=== PATIENT | female | born 1950 | race Caucasian/White ===

== ENCOUNTER → 2016-09-25 | Outpatient (CLI) | payer MEDICARE ==
[~2016-09-25] MED LIST: ATOR80TA75 PO; BUDE10.2 INH; CALC-126 PO; CETI10CA PO; DABI150C PO; DULO60CA7 PO; EZET10TA3 PO; MULT-717 PO; PROP20TA PO; REGADENOSON 0.4 MG/5 ML SYRINGE ONE; SOTA80TA18 PO
== END | disposition home or self-care (01) ==
LOC: CFH 08:25
PROVIDERS: ATTEND Internal Medicine Cardiovascular Disease
DX: R06.02 Shortness of breath (principal); R09.89 Other specified symptoms and signs involving the circulatory and respiratory systems
CPT/HCPCS: 78452; 93017; A9502; J2785

== ENCOUNTER 2018-02-14 08:06 | Day surgery (SDC) | payer MEDICARE ==
[~2018-02-14] VITALS: Ht 165.1 cm; Wt 100.0 kg
[~2018-02-14 08:06] MED LIST changes: +ATOR-2 PO; -ATOR80TA75 PO; +EZET10TA18 PO; -EZET10TA3 PO; -REGADENOSON 0.4 MG/5 ML SYRINGE ONE
[2018-02-14 09:03] VITALS: BP 152/98
[2018-02-14] MEDS ORDERED: BUPR150T73 PO (09:14)
[2018-02-14] MEDS ORDERED: ARIP2TAB2 PO (09:14)
[2018-02-14] MEDS ORDERED: DILT120C9 PO (09:14)
[2018-02-14 09:19] LABS: BASOPHILS # (AUTO) 0.04 x10^3/uL (0-0.1); BASOPHILS % (AUTO) 1 % (0-1); EOSINOPHILS # (AUTO) 0.17 x10^3/uL (0-0.4); EOSINOPHILS % (AUTO) 2 % (1-7); LYMPHOCYTES # (AUTO) 1.88 x10^3/uL (1-3.4); LYMPHOCYTES % (AUTO) 24 % (22-44); MD NO; MEAN CORPUSCULAR HEMOGLOBIN 30.3 pg (27.0-34.8); MEAN CORPUSCULAR HGB CONC 32.9 g/dL (32.4-35.8); MEAN CORPUSCULAR VOLUME 92.2 fL (80-100); MEAN PLATELET VOLUME 7.6 fL (7.4-10.4); MONOCYTES # (AUTO) 0.69 x10^3/uL (0.2-0.8); MONOCYTES % (AUTO) 9 % (2-9); NEUTROPHILS # (AUTO) 5.17 x10^3/uL (1.8-6.8); NEUTROPHILS % (AUTO) 65 % (42-75); PLATELET COUNT 298 x10^3/uL (130-400); RED CELL DISTRIBUTION WIDTH 15.3 % (9.6-15.2)
[2018-02-14 09:31] LABS: ANION GAP 8 mmol/L (5-15); CALCIUM 8.3 mg/dL (8.5-10.1); CHLORIDE 106 mmol/L (98-107); CREATININE 0.84 mg/dL (0.55-1.02)
[2018-02-14] MEDS ORDERED: PROPOFOL 10 MG/ML, 20ML ONE (10:55)
== END 2018-02-14 12:15 | disposition home or self-care (01) ==
LOC: CACL 08:06
PROVIDERS: ATTEND Internal Medicine Cardiovascular Disease
DX: I48.0 Paroxysmal atrial fibrillation (principal); I10 Essential (primary) hypertension; Z79.899 Other long term (current) drug therapy
CPT/HCPCS: 36415; 71046; 80048; 85025; 92960; J2704

== ENCOUNTER 2018-03-28 05:51 | Observation (INO) | payer MEDICARE ==
[2018-03-27 13:19] VITALS: BP 152/103
[2018-03-27 13:19] LABS: BASOPHILS # (AUTO) 0.05 x10^3/uL (0-0.1); BASOPHILS % (AUTO) 1 % (0-1); EOSINOPHILS # (AUTO) 0.17 x10^3/uL (0-0.4); EOSINOPHILS % (AUTO) 2 % (1-7); LYMPHOCYTES # (AUTO) 2.14 x10^3/uL (1-3.4); LYMPHOCYTES % (AUTO) 31 % (22-44); MD NO; MEAN CORPUSCULAR HEMOGLOBIN 29.7 pg (27.0-34.8); MEAN CORPUSCULAR HGB CONC 32.7 g/dL (32.4-35.8); MEAN CORPUSCULAR VOLUME 90.7 fL (80-100); MEAN PLATELET VOLUME 7.8 fL (7.4-10.4); MONOCYTES # (AUTO) 0.57 x10^3/uL (0.2-0.8); MONOCYTES % (AUTO) 8 % (2-9); NEUTROPHILS # (AUTO) 4.02 x10^3/uL (1.8-6.8); NEUTROPHILS % (AUTO) 58 % (42-75); PLATELET COUNT 272 x10^3/uL (130-400); RED BLOOD COUNT 4.97 x10^6/uL (3.82-5.3); RED CELL DISTRIBUTION WIDTH 14.8 % (9.6-15.2)
[2018-03-27 13:23] LABS: ALANINE AMINOTRANSFERASE 25 U/L (12-78); ALBUMIN 3.1 g/dL (3.4-5.0); ANION GAP 7 mmol/L (5-15); CALCIUM 8.2 mg/dL (8.5-10.1); CHLORIDE 106 mmol/L (98-107); CREATININE 0.74 mg/dL (0.55-1.02)
[2018-03-27 13:25] LABS: ALKALINE PHOSPHATASE 181 U/L (45-117); BILIRUBIN,TOTAL 0.7 mg/dL (0.2-1.0); TOTAL PROTEIN 7.3 g/dL (6.4-8.2)
[~2018-03-28] VITALS: Ht 162.6 cm; Wt 91.2 kg
[~2018-03-28 05:51] MED LIST changes: +ARIP20TA5 PO; +ARIP2TAB2 PO; +BUPR150T73 PO; +DILT120C9 PO; +SOTA80TA PO
[2018-03-28] MEDS ORDERED: SODIUM CHLORIDE 0.9% 1,000 ML IV SCH ×2 (06:16→06:30)
[2018-03-28] MEDS ORDERED: Metoprolol PO (06:32)
[2018-03-28] MEDS ORDERED: PROPOFOL 50 ML ONE (07:29)
[2018-03-28] MEDS ORDERED: MIDAZOLAM 1 MG/ML, 2ML ONE (07:29)
[2018-03-28] MEDS ORDERED: FENTANYL PF 250 MCG/5ML ONE (07:29)
[2018-03-28] MEDS ORDERED: ROCURONIUM 10 MG/ML,10ML ONE (08:06)
[2018-03-28] MEDS ORDERED: DEXAMETHASONE 4 MG/ML, 1ML ONE (08:06)
[2018-03-28] MEDS ORDERED: ONDANSETRON 2MG/ML, 2ML ONE (08:06)
[2018-03-28] MEDS ORDERED: SUCCINYLCHOLINE 20 MG/ML, 10ML ONE (08:06)
[2018-03-28] MEDS ORDERED: PROTAMINE SULFATE 10 MG/ML, 5ML ONE (12:05)
[2018-03-28] MEDS ORDERED: ZOLPIDEM 5MG TABLET PO PRN (12:30)
[2018-03-28] MEDS ORDERED: TEMPLATE NON-FORMULARY MED. (Budesonide/Formoterol Fumarate (Symbicort 160-4.5 Mcg Inhaler INH PRN (12:30)
[2018-03-28] MEDS ORDERED: MIDAZOLAM 1 MG/ML, 2ML IV PRN (13:00)
[2018-03-28] MEDS ORDERED: PROMETHAZINE 25 MG/ML, 1ML IV PRN (13:00)
[2018-03-28] MEDS ORDERED: PROMETHAZINE 12.5 MG SUPP PR PRN (13:00)
[2018-03-28] MEDS ORDERED: EPHEDRINE 50 MG/ML, 1ML IM PRN (13:00)
[2018-03-28] MEDS ORDERED: ONDANSETRON ODT 8 MG PO PRN (13:00)
[2018-03-28] MEDS ORDERED: FENTANYL PF 100 MCG/2ML IV PRN (13:00)
[2018-03-28] MEDS ORDERED: ONDANSETRON 2MG/ML, 2ML IV PRN (13:00)
[2018-03-28] MEDS ORDERED: ACETAMINOPHEN 325 MG TABLET PO PRN (13:00)
[2018-03-28] MEDS ORDERED: OXYcodone 5 MG/5 ML ORAL.SOL UDC PO PRN (13:00)
[2018-03-28] MEDS ORDERED: PROMETHAZINE 25 MG SUPP PR PRN (13:00)
[2018-03-28] MEDS ORDERED: DIPHENHYDRAMINE 50 MG/ML, 1ML IVPush PRN (13:00)
[2018-03-28] MEDS ORDERED: OXYcodone 5 MG/5 ML ORAL.SOL UDC ONE (13:34)
[2018-03-28] MEDS ORDERED: HYDROmorphone 1 MG/ML, 1ML ONE (13:44)
[2018-03-28] MEDS: HYDROmorphone 2 MG/ML, 1ML IVPush PRN ×2 (13:45→13:51)
[2018-03-28] MEDS: ACETAMINOPHEN 325 MG TABLET PO PRN (14:40)
[2018-03-28 14:50] VITALS: BP 121/63
[2018-03-28] MEDS ORDERED: ALBUTEROL SULFATE 2.5 MG/3 ML NPPB SCH (15:00)
[2018-03-28] MEDS ORDERED: DABIGATRAN 150 MG CAPSULE ONE (15:18)
[2018-03-28] MEDS: DABIGATRAN 150 MG CAPSULE PO SCH (15:20)
[2018-03-28] MEDS: ALBUTEROL SULFATE 2.5 MG/3 ML NPPB SCH ×2 (16:33→20:43)
[2018-03-28] MEDS ORDERED: SOTALOL 80MG TABLET ONE (17:05)
[2018-03-28] MEDS: SOTALOL 80MG TABLET PO SCH (17:07)
[2018-03-28 18:50] VITALS: BP 100/67
[2018-03-28] MEDS ORDERED: BUDESONIDE 0.5 MG/2 ML INHA NPPB SCH (21:00)
[2018-03-28] MEDS ORDERED: ATORVASTATIN 80 MG TABLET PO SCH (21:00)
[2018-03-28] MEDS ORDERED: EZETIMIBE 10 MG TABLET PO SCH (21:00)
[2018-03-29 00:35] VITALS: BP 97/65
[2018-03-29] MEDS: ACETAMINOPHEN 325 MG TABLET PO PRN ×2 (01:53→12:52)
[2018-03-29] MEDS: ALBUTEROL SULFATE 2.5 MG/3 ML NPPB SCH (02:24)
[2018-03-29 07:43] VITALS: BP 139/87
[2018-03-29] MEDS ORDERED: METOPROLOL PO SCH (09:00)
[2018-03-29] MEDS ORDERED: CALCIUM/VITAMIN D3 250-125 TABLET PO SCH (09:00)
[2018-03-29] MEDS ORDERED: CETIRIZINE 10 MG TABLET PO SCH (09:00)
[2018-03-29] MEDS ORDERED: BUPROPION SR 150 MG TABLET PO SCH (09:00)
[2018-03-29] MEDS ORDERED: BUDESONIDE 0.5 MG/2 ML INHA NPPB PRN ×2 (09:00→09:30)
[2018-03-29] MEDS ORDERED: DULOXETINE 30 MG CAPSULE.DR PO SCH (09:00)
[2018-03-29] MEDS ORDERED: MULTIVITAMINS/MINERALS TABLET PO SCH (09:00)
[2018-03-29] MEDS ORDERED: ARIPIPRAZOLE 10 MG TABLET PO SCH (09:00)
[2018-03-29] MEDS ORDERED: ALBUTEROL SULFATE 2.5 MG/3 ML NPPB PRN ×2 (09:00→09:30)
[2018-03-29] MEDS ORDERED: KETOROLAC 30 MG/1 ML IVPush ONE (10:00)
[2018-03-29] MEDS: DABIGATRAN 150 MG CAPSULE PO SCH (10:09)
[2018-03-29] MEDS: SOTALOL 80MG TABLET PO SCH (10:10)
[2018-03-29] MEDS ORDERED: METO25TA91 PO (10:18)
[2018-03-29 12:39] VITALS: BP 117/75
[2018-03-29] MEDS ORDERED: METOPROLOL SUCCINATE 25 MG TAB.ER.24H ONE (12:50)
[2018-03-29] MEDS ORDERED: METOPROLOL SUCCINATE 25 MG TAB.ER.24H PO ONE (13:00)
== END 2018-03-29 15:57 | disposition home or self-care (01) ==
LOC: CACL 05:51 → ORIP 12:23 → 5SO 14:47
PROVIDERS: ADMIT Internal Medicine Cardiovascular Disease; ATTEND Internal Medicine Cardiovascular Disease
DX: I48.91 Unspecified atrial fibrillation (principal); I48.92 Unspecified atrial flutter; Z86.73 Personal history of transient ischemic attack (TIA), and cerebral infarction without residual deficits
CPT/HCPCS: 36415; 80053; 85025; 85347; 93306; 93312; 93321; 93325; 93613; 93655; 93656; 93662; 96374; C1730; C1731; C1732; C1759; C1766; C1769; C1893; C1894; G0378; J0330; J1100; J1170; J1885; J2250; J2405; J2704; J2720; J3010

== ENCOUNTER → 2018-04-17 | Outpatient (CLI) | payer MEDICARE ==
[~2018-04-17] MED LIST changes: +METO25TA91 PO; +Metoprolol PO
== END | disposition home or self-care (01) ==
LOC: CVU 11:28
PROVIDERS: ATTEND Internal Medicine Cardiovascular Disease
DX: I08.3 Combined rheumatic disorders of mitral, aortic and tricuspid valves (principal); I48.91 Unspecified atrial fibrillation; E11.9 Type 2 diabetes mellitus without complications; Z86.73 Personal history of transient ischemic attack (TIA), and cerebral infarction without residual deficits
CPT/HCPCS: 93306

== ENCOUNTER → 2018-07-16 | Outpatient (CLI) | payer MEDICARE | END | disposition home or self-care (01) | LOC: CFH 11:31 | PROVIDERS: ATTEND Nurse Practitioner Family | DX: I48.0 Paroxysmal atrial fibrillation (principal); R94.31 Abnormal electrocardiogram [ECG] [EKG] | CPT/HCPCS: 78452; 93017; A9502 ==

== ENCOUNTER → 2019-03-18 | Outpatient (CLI) | payer MEDICARE ==
[~2019-03-18] MED LIST changes: +DILT120C48 PO; -DILT120C9 PO; -EZET10TA18 PO; +EZET10TA70 PO
== END | disposition home or self-care (01) ==
LOC: CFH 09:21
PROVIDERS: ATTEND Nurse Practitioner Family
DX: I08.3 Combined rheumatic disorders of mitral, aortic and tricuspid valves (principal); I48.0 Paroxysmal atrial fibrillation
CPT/HCPCS: 93306

== ENCOUNTER → 2019-04-29 | Outpatient (CLI) | payer MEDICARE ==
[2014-04-16 07:49] VITALS: BP 102/67
== END | disposition home or self-care (01) ==
LOC: CFH 07:59 → EDSTATUS 08:30
PROVIDERS: ATTEND Nurse Practitioner Family
DX: I48.0 Paroxysmal atrial fibrillation (principal); R94.31 Abnormal electrocardiogram [ECG] [EKG]
CPT/HCPCS: 78452; 93017; A9502

== ENCOUNTER 2019-10-20 11:33 | Day surgery (SDC) | payer MEDICARE ==
[~2019-10-20] VITALS: Ht 165.1 cm; Wt 75.0 kg
[2019-10-20 13:38] VITALS: BP 148/84
[2019-10-20] MEDS ORDERED: BUDE10.2 INH (13:47)
[2019-10-20] MEDS ORDERED: FURO20TA3 PO (13:47)
[2019-10-20] MEDS ORDERED: LEVO50TA5 PO (13:47)
[2019-10-20] MEDS ORDERED: METF500T17 PO ×2 (13:47)
[2019-10-20] MEDS ORDERED: FLEC100T PO (13:47)
[2019-10-20 13:49] LABS: BASOPHILS # (AUTO) 0.04 x10^3/uL (0-0.1); BASOPHILS % (AUTO) 1 % (0-1); EOSINOPHILS # (AUTO) 0.15 x10^3/uL (0-0.4); EOSINOPHILS % (AUTO) 2 % (1-7); LYMPHOCYTES # (AUTO) 2.62 x10^3/uL (1-3.4); LYMPHOCYTES % (AUTO) 30 % (22-44); MD NO; MEAN CORPUSCULAR HEMOGLOBIN 28.8 pg (27.0-34.8); MEAN CORPUSCULAR HGB CONC 32.1 g/dL (32.4-35.8); MEAN CORPUSCULAR VOLUME 89.9 fL (80-100); MEAN PLATELET VOLUME 7.7 fL (7.4-10.4); MONOCYTES # (AUTO) 0.62 x10^3/uL (0.2-0.8); MONOCYTES % (AUTO) 7 % (2-9); NEUTROPHILS # (AUTO) 5.28 x10^3/uL (1.8-6.8); NEUTROPHILS % (AUTO) 61 % (42-75); PLATELET COUNT 323 x10^3/uL (130-400); RED BLOOD COUNT 4.97 x10^6/uL (3.82-5.3); RED CELL DISTRIBUTION WIDTH 16.8 % (9.6-15.2)
[2019-10-20] MEDS ORDERED: PROPOFOL 10 MG/ML, 100ML IV ONE (13:55)
== END 2019-10-20 15:37 | disposition home or self-care (01) ==
LOC: CACL 11:33
PROVIDERS: ATTEND Internal Medicine Cardiovascular Disease
DX: I48.0 Paroxysmal atrial fibrillation (principal); I27.20 Pulmonary hypertension, unspecified; E11.9 Type 2 diabetes mellitus without complications; Z79.84 Long term (current) use of oral hypoglycemic drugs; Z79.890 Hormone replacement therapy; Z79.899 Other long term (current) drug therapy
CPT/HCPCS: 36415; 85025; 92960; 93005; J2704

== ENCOUNTER → 2019-11-12 | Outpatient (CLI) | payer MEDICARE ==
[~2019-11-12] MED LIST changes: +FLEC100T PO; +FURO20TA3 PO; +LEVO50TA5 PO; +METF500T17 PO
[2019-11-12 13:03] LABS: BASOPHILS # (AUTO) 0.03 x10^3/uL (0-0.1); BASOPHILS % (AUTO) 0 % (0-1); EOSINOPHILS # (AUTO) 0.11 x10^3/uL (0-0.4); EOSINOPHILS % (AUTO) 2 % (1-7); LYMPHOCYTES # (AUTO) 2.03 x10^3/uL (1-3.4); LYMPHOCYTES % (AUTO) 28 % (22-44); MD NO; MEAN CORPUSCULAR HEMOGLOBIN 28.7 pg (27.0-34.8); MEAN CORPUSCULAR HGB CONC 31.6 g/dL (32.4-35.8); MEAN CORPUSCULAR VOLUME 90.9 fL (80-100); MEAN PLATELET VOLUME 7.5 fL (7.4-10.4); MONOCYTES # (AUTO) 0.55 x10^3/uL (0.2-0.8); MONOCYTES % (AUTO) 8 % (2-9); NEUTROPHILS # (AUTO) 4.54 x10^3/uL (1.8-6.8); NEUTROPHILS % (AUTO) 63 % (42-75); PLATELET COUNT 346 x10^3/uL (130-400); RED BLOOD COUNT 4.92 x10^6/uL (3.82-5.3); RED CELL DISTRIBUTION WIDTH 16.8 % (9.6-15.2)
[2019-11-12 13:11] LABS: CHLORIDE 105 mmol/L (98-107)
[2019-11-12 13:18] LABS: ANION GAP 8 mmol/L (5-15); CALCIUM 9.2 mg/dL (8.5-10.1); CREATININE 0.81 mg/dL (0.55-1.02)
== END | disposition home or self-care (01) ==
LOC: STAR 12:05
PROVIDERS: ATTEND Internal Medicine Cardiovascular Disease
DX: Z01.812 Encounter for preprocedural laboratory examination (principal); Z20.828 Contact with and (suspected) exposure to other viral communicable diseases
CPT/HCPCS: 36415; 71046; 80048; 85025; 87635

== ENCOUNTER 2019-11-16 07:33 | Observation (INO) | payer MEDICARE ==
[~2019-11-16] VITALS: Ht 165.1 cm; Wt 90.9 kg
[2019-11-16] MEDS ORDERED: FENTANYL PF 250 MCG/5ML ONE (08:20)
[2019-11-16] MEDS ORDERED: MEPERIDINE/PF 25MG/0.5ML IVPush PRN (08:30)
[2019-11-16] MEDS ORDERED: PROMETHAZINE 25 MG/ML, 1ML IVPush PRN (08:30)
[2019-11-16] MEDS ORDERED: ACETAMINOPHEN 325 MG TABLET PO PRN (08:30)
[2019-11-16] MEDS ORDERED: hydrALAzine 20 MG/ML, 1ML IV PRN (08:30)
[2019-11-16] MEDS ORDERED: ONDANSETRON 2MG/ML, 2ML IVPush PRN (08:30)
[2019-11-16] MEDS ORDERED: EPHEDRINE 50 MG/ML, 1ML IVPush PRN (08:30)
[2019-11-16] MEDS ORDERED: PLEASE ENTER HEIGHT AND WEIGHT MC SCH (08:30)
[2019-11-16] MEDS ORDERED: LABETALOL 5MG/ML, 20ML IV PRN (08:30)
[2019-11-16] MEDS ORDERED: HYDROmorphone 1 MG/ML, 1ML INJ IVPush PRN (08:30)
[2019-11-16] MEDS ORDERED: SODIUM CHLORIDE 0.9% 1,000 ML IV SCH ×2 (09:03→09:30)
[2019-11-16 09:14] VITALS: BP 131/75
[2019-11-16] MEDS ORDERED: LIDOCAINE 1%, 20ML ONE (09:42)
[2019-11-16] MEDS ORDERED: LIDOCAINE-MPF 2% ,5ML ONE (09:52)
[2019-11-16] MEDS ORDERED: PHENYLEPHRINE 10 MG/ML ONE (10:17)
[2019-11-16] MEDS ORDERED: SUGAMMADEX 200 MG/2 ML IVPush ONE (10:18)
[2019-11-16] MEDS ORDERED: ROCURONIUM 10 MG/ML,10ML ONE (10:45)
[2019-11-16] MEDS ORDERED: PROPOFOL 10 MG/ML, 20ML ONE (10:45)
[2019-11-16] MEDS ORDERED: HEPARIN 1,000 UNITS/ML, 10ML ONE ×2 (10:45)
[2019-11-16] MEDS ORDERED: DEXAMETHASONE 4 MG/ML, 1ML ONE (10:45)
[2019-11-16] MEDS ORDERED: ONDANSETRON 2MG/ML, 2ML ONE (10:45)
[2019-11-16] MEDS ORDERED: SUCCINYLCHOLINE 20 MG/ML, 10ML ONE (10:45)
[2019-11-16] MEDS ORDERED: FENTANYL PF 100 MCG/2ML ONE (13:14)
[2019-11-16] MEDS: FENTANYL PF 100 MCG/2ML IV PRN ×3 (14:06→14:23)
[2019-11-16] MEDS ORDERED: OXYcodone 5 MG/5 ML ORAL.SOL UDC ONE ×2 (14:08→14:29)
[2019-11-16] MEDS ORDERED: ACETAMINOPHEN 650 MG/20.3 ML UDC ONE (14:08)
[2019-11-16] MEDS: OXYcodone 5 MG/5 ML ORAL.SOL UDC PO PRN ×2 (14:09→14:34)
[2019-11-16] MEDS ORDERED: HYDROmorphone 1 MG/ML, 1ML INJ ONE (14:30)
[2019-11-16 15:17] VITALS: BP 123/78
[2019-11-16] MEDS ORDERED: HYDROcodone/APAP 5/325 TABLET ONE (17:47)
[2019-11-16] MEDS: HYDROcodone/APAP 5/325 TABLET PO PRN (17:49)
[2019-11-16 19:23] VITALS: BP 99/66
[2019-11-16] MEDS ORDERED: EZETIMIBE 10 MG TABLET PO SCH (21:00)
[2019-11-16] MEDS ORDERED: DABIGATRAN 150 MG CAPSULE PO SCH (21:00)
[2019-11-16] MEDS: FLECAINIDE 100MG TABLET PO SCH (22:12)
[2019-11-16] MEDS: COLCHICINE 0.6 MG CAPSULE PO SCH (22:12)
[2019-11-16] MEDS: DABIGATRAN 150 MG CAPSULE PO SCH (22:12)
[2019-11-17 01:52] VITALS: BP 117/74
[2019-11-17] MEDS ORDERED: LEVOTHYROXINE 50 MCG TABLET PO SCH (06:00)
[2019-11-17 06:45] VITALS: BP 112/66
[2019-11-17] MEDS: FLECAINIDE 100MG TABLET PO SCH (08:39)
[2019-11-17] MEDS: DABIGATRAN 150 MG CAPSULE PO SCH (08:39)
[2019-11-17] MEDS: COLCHICINE 0.6 MG CAPSULE PO SCH (08:39)
[2019-11-17] MEDS: HYDROcodone/APAP 5/325 TABLET PO PRN (08:44)
[2019-11-17] MEDS ORDERED: MULTIVITAMINS WITH IRON TABLET PO SCH (09:00)
[2019-11-17] MEDS ORDERED: ARIPIPRAZOLE 2 MG TABLET PO SCH (09:00)
[2019-11-17] MEDS ORDERED: DULOXETINE 30 MG CAPSULE.DR PO SCH (09:00)
[2019-11-17] MEDS ORDERED: CALCIUM/VITAMIN D3 250-125 TABLET PO SCH (09:00)
[2019-11-17] MEDS ORDERED: BUPROPION SR 150 MG TABLET PO SCH (09:00)
[2019-11-17] MEDS ORDERED: CETIRIZINE 10 MG TABLET PO PRN (09:00)
[2019-11-17] MEDS ORDERED: FLUTICASONE/VILANTEROL 100-25MCG/INH INH SCH (09:00)
[2019-11-18] MEDS ORDERED: ATORVASTATIN 40 MG TABLET PO SCH (09:00)
== END 2019-11-17 10:40 | disposition home or self-care (01) ==
LOC: CACL 07:33 → ORIP 13:13 → 5SO 15:04 → DCLOUNGE 11-17 10:32
PROVIDERS: ADMIT Internal Medicine Cardiovascular Disease; ATTEND Internal Medicine Cardiovascular Disease
DX: I48.3 Typical atrial flutter (principal); I48.0 Paroxysmal atrial fibrillation; I10 Essential (primary) hypertension; E11.9 Type 2 diabetes mellitus without complications; J44.9 Chronic obstructive pulmonary disease, unspecified; F32.9 Major depressive disorder, single episode, unspecified; E78.5 Hyperlipidemia, unspecified; E03.9 Hypothyroidism, unspecified; Z86.73 Personal history of transient ischemic attack (TIA), and cerebral infarction without residual deficits; Z79.899 Other long term (current) drug therapy
CPT/HCPCS: 85347; 93308; 93312; 93321; 93325; 93462; 93613; 93621; 93653; 93655; 93662; C1730; C1732; C1759; C1766; C1769; C1893; C1894; G0378; J0330; J1100; J1170; J1644; J2370; J2405; J2704; J3010; J3490

== ENCOUNTER → 2019-12-21 | Outpatient (CLI) | payer MEDICARE | END | disposition home or self-care (01) | LOC: CARD 11:29 | PROVIDERS: ATTEND Nurse Practitioner Family | DX: I27.20 Pulmonary hypertension, unspecified (principal) | CPT/HCPCS: 94060; 94726; 94729 ==

== ENCOUNTER → 2020-01-26 | Outpatient (CLI) | payer MEDICARE ==
[~2020-01-26] MED LIST changes: +GADOTERATE 10 MMOL/20 ML VIAL ONE
== END | disposition home or self-care (01) ==
LOC: RAD 09:37
PROVIDERS: ATTEND Nurse Practitioner Family
DX: G31.9 Degenerative disease of nervous system, unspecified (principal); G93.89 Other specified disorders of brain; I63.9 Cerebral infarction, unspecified; R41.0 Disorientation, unspecified
CPT/HCPCS: 70553; A9575